=== PATIENT | male | born 2000 | race Caucasian/White ===

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

== ENCOUNTER 2022-04-29 18:08 | Emergency (ER) | payer BC ==
[2022-04-29] MEDS ORDERED: Ketorolac 30 MG/ML SDV IM ONE (19:29)
[2022-04-29] MEDS ORDERED: Acetaminophen/HYDROcodone 325-5 MG Tab PO ONE (19:29)
[2022-04-29] MEDS ORDERED: Diphtheria,Pertussis(Acell),Tetanus Vaccine 0.5 ML Syringe IM ONE (19:42)
[2022-04-29] MEDS ORDERED: LORazepam 1 MG Tab PO ONE (19:43)
== END 2022-04-29 20:23 | disposition home or self-care (01) ==
LOC: JD.ED 18:08
DX: S62.324A Displaced fracture of shaft of fourth metacarpal bone, right hand, initial encounter for closed fracture (principal); F17.210 Nicotine dependence, cigarettes, uncomplicated; W22.8XXA Striking against or struck by other objects, initial encounter
CPT/HCPCS: 29125; 73110; 73130; 90471; 99283; A9270; J1885

== ENCOUNTER 2023-08-05 22:05 | Emergency (ER) | payer BC ==
[2023-08-05] MEDS ORDERED: Lidocaine 1% 10 ML MDV INJECT ONE (22:18)
== END 2023-08-06 00:27 | disposition home or self-care (01) ==
LOC: JD.ED 22:05
DX: S61.012A Laceration without foreign body of left thumb without damage to nail, initial encounter (principal); W26.0XXA Contact with knife, initial encounter; Y93.G1 Activity, food preparation and clean up
CPT/HCPCS: 12001; 99282